=== PATIENT | male | born 1995 | race Caucasian/White ===

== ENCOUNTER 2018-11-14 11:27 | Emergency (ER) | payer OTHER ==
[~2018-11-14] VITALS: Ht 182.9 cm; Wt 86.2 kg
== END 2018-11-14 13:05 | disposition home or self-care (01) ==
LOC: ER 11:27
DX: S01.01XA Laceration without foreign body of scalp, initial encounter (principal); Z87.891 Personal history of nicotine dependence; W22.8XXA Striking against or struck by other objects, initial encounter
CPT/HCPCS: 12002; 99282-25

== ENCOUNTER 2018-11-21 10:50 | Emergency (ER) | payer OTHER ==
[~2018-11-21] VITALS: Ht 182.9 cm; Wt 81.7 kg
== END 2018-11-21 11:36 | disposition home or self-care (01) ==
LOC: ER 10:50
DX: S01.01XD Laceration without foreign body of scalp, subsequent encounter (principal); Z87.891 Personal history of nicotine dependence; W22.8XXD Striking against or struck by other objects, subsequent encounter
CPT/HCPCS: 90471; 90714; 99281-25